=== PATIENT | female | born 1960 | race Caucasian/White ===

== ENCOUNTER 2018-12-18 21:20 | Outpatient (REF) | payer BC, SELFPAY ==
[2018-12-18 21:49] LABS: Anion Gap 8.3 mmol/L (3-11); BUN 16 mg/dL (7-18); CO2 32.7 mmol/L (21.0-32.0); CREATININE 1.02 mg/dL (0.55-1.02); Calcium 9.8 mg/dL (8.5-10.1); Chloride 101 mmol/L (98-107); Estimated GFR 55.28 (mL/min/1.73m2); Glucose 118 mg/dL (70-100); Potassium 3.5 mmol/L (3.5-5.1); Sodium 142 mmol/L (136-145)
== END 2018-12-18 21:40 ==
LOC: NCHCN 21:20
PROVIDERS: PCP Nurse Practitioner Family; Visit Provider Nurse Practitioner Family
DX: I10 Essential (primary) hypertension (principal); Z12.11 Encounter for screening for malignant neoplasm of colon
CPT/HCPCS: 80048; 82274

== ENCOUNTER 2019-11-09 14:35 | Outpatient (REF) | payer BC, SELFPAY ==
[2019-11-09 21:46] LABS: Abs Immature Grans 0.01 k/cumm (0.0-0.09); Absolute Basophil Count 0.03 k/cumm (0.0-0.2); Absolute Eosinophil Count 0.12 k/cumm (0.0-0.7); Absolute Lymphocyte Count 1.77 k/cumm (1.2-3.4); Absolute Monocyte Count 0.57 k/cumm (0.11-0.7); Absolute Neutrophil Count 2.58 k/cumm (1.2-6.7); Basophils % 0.6; Eosinophils % 2.4; HGB 13.9 g/dL (12.0-15.5); Immature Grans % 0.2 %; Lymphocytes % 34.8; Mean Corp. HGB Concentration 33.1 g/dL (32.0-36.0); Mean Corpuscular Volume 84.5 fL (80-95); Mean Platelet Volume 10.4 fL (8.0-11.0); Monocytes % 11.2; Neutrophils % 50.8; Platelet Count 311 x1000/uL (130-400); RBC 4.97 m/cumm (4.00-5.20); RBC Distribution Width 13.5 % (11.7-14.6); White Blood Cell Count 5.08 k/cumm (4.4-10.8)
[2019-11-09 22:01] LABS: ALT 31 U/L (14-59); AST 23 U/L (15-37); Albumin 3.6 g/dL (3.4-5.0); Alkaline Phosphatase 62 U/L (46-116); Anion Gap 7.3 mmol/L (3-11); BUN 18 mg/dL (7-18); Bilirubin, Total 0.3 mg/dL (0.2-1.0); CO2 31.7 mmol/L (21.0-32.0); Calcium 9.8 mg/dL (8.5-10.1); Chloride 103 mmol/L (98-107); Glucose 113 mg/dL (74-106); NT-proBNP 112 pg/mL (<300); Potassium 4.1 mmol/L (3.5-5.1); Sodium 142 mmol/L (136-145); Total Protein 7.3 g/dL (6.4-8.2)
== END 2019-11-09 14:55 ==
LOC: NCHCN 14:35
PROVIDERS: Nurse Practitioner Family; PCP Nurse Practitioner Family; Visit Provider Nurse Practitioner Family
DX: R63.5 Abnormal weight gain (principal); R06.02 Shortness of breath; E11.9 Type 2 diabetes mellitus without complications
CPT/HCPCS: 80053; 82043; 82570; 83880; 85025

== ENCOUNTER 2020-11-25 19:39 | Outpatient (REF) | payer BC, SELFPAY ==
[2020-11-25 14:38] LABS: Anion Gap 8.5 mmol/L (3-11); BUN 11 mg/dL (7-18); CO2 29.5 mmol/L (21.0-32.0); CREATININE 0.8 mg/dL (0.55-1.02); Calcium 9.5 mg/dL (8.5-10.1); Chloride 98 mmol/L (98-107); Glucose 142 mg/dL (74-106); Potassium 3.7 mmol/L (3.5-5.1); Sodium 136 mmol/L (136-145)
== END 2020-11-25 19:40 | disposition home or self-care (01) ==
LOC: NCHCN 19:39
PROVIDERS: PCP Nurse Practitioner Family; Visit Provider Registered Nurse
DX: I10 Essential (primary) hypertension (principal); E11.9 Type 2 diabetes mellitus without complications
CPT/HCPCS: 80048

== ENCOUNTER 2021-03-07 18:33 | Outpatient (REF) | payer BC, SELFPAY | END 2021-03-07 18:34 | disposition home or self-care (01) | LOC: NCHCN 18:33 | PROVIDERS: PCP Nurse Practitioner Family; Visit Provider Family Medicine | DX: E11.9 Type 2 diabetes mellitus without complications (principal) | CPT/HCPCS: 82043; 82570 ==

== ENCOUNTER 2022-01-24 13:33 | Outpatient (REF) | payer BC, SELFPAY ==
[2022-01-24 16:26] LABS: COMMENT (LAB VIEW ONLY) 49.89 mg/dL; Microalb ug/mg Crea 29.5 ug/mg Cr
== END 2022-01-24 13:34 | disposition home or self-care (01) ==
LOC: NCHCN 13:33
PROVIDERS: PCP Nurse Practitioner Family; Visit Provider Family Medicine
DX: E11.9 Type 2 diabetes mellitus without complications (principal)
CPT/HCPCS: 82043; 82570

== ENCOUNTER 2022-10-23 09:02 | Outpatient (REF) | payer BC, SELFPAY ==
[2022-10-23 16:20] LABS: BUN 12 mg/dL (7-18); CREATININE 0.9 mg/dL (0.55-1.02); Calcium 9.7 mg/dL (8.5-10.1); Calculated LDL 145 mg/dL (<100); Chloride 100 mmol/L (98-107); Cholesterol 239 mg/dL (<200); Estimated GFR 71.83 (mL/min/1.73m2); Glucose 144 mg/dL (74-106); HDL Cholesterol 52 mg/dL (40-60); Potassium 3.9 mmol/L (3.5-5.1); Sodium 137 mmol/L (136-145); Triglyceride 214 mg/dL (<150)
== END 2022-10-23 09:03 | disposition home or self-care (01) ==
LOC: NCHCN 09:02
PROVIDERS: PCP Nurse Practitioner Family; Visit Provider Family Medicine
DX: I10 Essential (primary) hypertension (principal); E78.5 Hyperlipidemia, unspecified
CPT/HCPCS: 80048; 80061

== ENCOUNTER 2023-05-24 10:37 | Outpatient (REF) | payer BC, SELFPAY ==
[2023-05-24 16:11] LABS: COMMENT (LAB VIEW ONLY) 54.15 mg/dL
== END 2023-05-24 10:38 | disposition home or self-care (01) ==
LOC: NCHCN 10:37
PROVIDERS: PCP Nurse Practitioner Family; Visit Provider Family Medicine
DX: E11.9 Type 2 diabetes mellitus without complications (principal)
CPT/HCPCS: 82043; 82570

== ENCOUNTER 2023-11-04 14:46 | Outpatient (REF) | payer BC, SELFPAY ==
[2023-11-04 14:57] LABS: Hemoglobin A1C 6.5 % (<5.7)
[2023-11-04 15:00] LABS: Anion Gap 8.1 mmol/L (3-11); BUN 12 mg/dL (7-18); CO2 28.9 mmol/L (21.0-32.0); CREATININE 0.9 mg/dL (0.55-1.02); Calcium 9.5 mg/dL (8.5-10.1); Calculated LDL 127 mg/dL (<100); Chloride 102 mmol/L (98-107); Cholesterol 220 mg/dL (<200); Estimated GFR 71.39 (mL/min/1.73m2); Glucose 130 mg/dL (74-106); HDL Cholesterol 53 mg/dL (40-60); Potassium 3.5 mmol/L (3.5-5.1); Sodium 139 mmol/L (136-145); Triglyceride 200 mg/dL (<150)
== END 2023-11-04 14:47 | disposition home or self-care (01) ==
LOC: NCHCN 14:46
PROVIDERS: PCP Nurse Practitioner Family; Visit Provider Family Medicine
DX: I10 Essential (primary) hypertension (principal); E78.5 Hyperlipidemia, unspecified; E11.9 Type 2 diabetes mellitus without complications
CPT/HCPCS: 80048; 80061; 83036

== ENCOUNTER 2024-06-19 14:40 | Outpatient (REF) | payer BC, SELFPAY ==
[2024-06-19 15:03] LABS: COMMENT (LAB VIEW ONLY) 39.79 mg/dL; Microalb ug/mg Crea 11.1 ug/mg Cr
== END 2024-06-19 14:41 | disposition home or self-care (01) ==
LOC: NCHCN 14:40
PROVIDERS: PCP Nurse Practitioner Family; Visit Provider Family Medicine
DX: E11.9 Type 2 diabetes mellitus without complications (principal)
CPT/HCPCS: 82043; 82570

== ENCOUNTER 2025-03-19 14:21 | Outpatient (REF) | payer MEDICARE, BC, SELFPAY ==
[2025-03-19 15:01] LABS: ALT 31 U/L (14-59); AST 23 U/L (15-37); Albumin 3.6 g/dL (3.4-5.0); Alkaline Phosphatase 69 U/L (46-116); Anion Gap 5.3 mmol/L (3-11); BUN 15 mg/dL (7-18); Bilirubin, Total 0.3 mg/dL (0.2-1.0); CO2 32.7 mmol/L (21.0-32.0); CREATININE 0.9 mg/dL (0.55-1.02); Calculated LDL 138 mg/dL (<100); Chloride 99 mmol/L (98-107); Cholesterol 223 mg/dL (<200); Estimated GFR 70.51 (mL/min/1.73m2); Glucose 120 mg/dL (74-106); HDL Cholesterol 49 mg/dL (>or=50); Potassium 3.5 mmol/L (3.5-5.1); Sodium 137 mmol/L (136-145); Triglyceride 181 mg/dL (<150)
== END 2025-03-19 14:22 | disposition home or self-care (01) ==
LOC: NCHCN 14:21
PROVIDERS: PCP Nurse Practitioner Family; Visit Provider Family Medicine
DX: E78.5 Hyperlipidemia, unspecified (principal); E66.01 Morbid (severe) obesity due to excess calories
CPT/HCPCS: 80053; 80061

== ENCOUNTER 2025-09-14 01:00 | Outpatient (REF) | payer MEDICARE, BC, SELFPAY ==
[2025-09-14 21:34] LABS: Microalb ug/mg Crea 3.9 ug/mg Cr
== END 2025-09-14 01:01 | disposition home or self-care (01) ==
LOC: NCHCN 01:00
PROVIDERS: PCP Nurse Practitioner Family; Visit Provider Family Medicine
DX: E11.9 Type 2 diabetes mellitus without complications (principal)
CPT/HCPCS: 82043; 82570